=== PATIENT | male | born 1970 | race Caucasian/White ===

== ENCOUNTER → 2022-05-14 09:48 | Outpatient (CLI) | payer BC, SELFPAY ==
--- NOTE | ~2022-05-14 | MR_ITS ---
EXAMINATION: MR knee LT wo con DATE: 05/14/2022 10:29 INDICATION: Acute onset left knee pain TECHNIQUE: Magnetic resonance imaging (MRI) of the left knee was performed without intravenous contra st. Sequences included coronal PD-weighted FSE, coronal PD-weighted FS FSE, sagittal T2-weighted FSE , sagittal PD-weighted FS FSE and axial PD weighted fat saturated FSE. COMPARISON: None. FINDINGS: Medial compartment: Longitudinal horizontal tear plane extending to the intra-articular surface at the posterior horn of the medial meniscus. Partial-thickness chondral fissuring along the lateral side of the anterior to c entral weightbearing medial femoral condyle. Lateral compartment: Lateral meniscus is normal. Deep chondral fissuring without degenerative subchondral changes at the p osterior aspect of the lateral tibial plateau underlying the posterior horn of the lateral meniscus. Patellofemoral compartment: Deep chondral fissure without degenerative subchondral changes at the inferomedial margin of the medi al patellar facet. Relatively wide and deep chondral fissure with mild underlying subarticular edema- like signal change extending transversely across the trochlear groove and lateral two thirds of the m edial trochlea. At the trochlear groove there is an additional delaminating tear extending 8 mm infer iorly from the transverse chondral fissure near the bone chondral interface resulting in a nondisplac ed chondral flap. Ligaments and tendons: Anterior and posterior cruciate ligaments are normal. The medial collateral ligament and fibular tuan ateral ligament complex are normal. The extensor mechanism is normal. The visualized medial and later al hamstring tendons as well as the iliotibial band are normal. Fluid: Small knee joint effusion. No loose osteochondral bodies identified. Mild synovitis within the 5.8 x 2.2 x 1.2 cm Hairston's cyst. Osseous/other: Aside from the mild subarticular edema-like signal change at the medial trochlea and trochlear groove there is normal marrow signal. No fracture or pathologic marrow replacing process. IMPRESSION: 1. Horizontal tear at the posterior horn of the medial meniscus. 2. 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 3. Small left knee joint effusion and moderate-sized Hairston's cyst. Reviewed, dictated and finalized at location A. [facility] IMPRESSION: 1. Horizontal tear at the posterior horn of the medial meniscus. 2. Mild patellofemoral osteoarthritis with regions of high grade and moderate g rade chondromalacia. 3. Small left knee joint effusion and moderate-sized Hairston's cyst.
== END ==
PROVIDERS: PCP Physician Assistant; Visit Provider Physician Assistant
DX: M25.462 Effusion, left knee (principal); S83.242A Other tear of medial meniscus, current injury, left knee, initial encounter; X58.XXXA Exposure to other specified factors, initial encounter; M17.12 Unilateral primary osteoarthritis, left knee
CPT/HCPCS: 73721

== ENCOUNTER 2023-05-19 19:26 | Emergency (ER) | payer BC, SELFPAY ==
[2023-05-19 19:56] VITALS: BP 113/64; PULSE 60; RESP 16; TEMP 36.5; O2SAT 99
--- NOTE | 2023-05-19 20:18 | ED.SKABFB ---
HPI - Skin/Abscess/Foreign Bdy General Chief complaint: Skin/Abscess/Foreign Body Stated complaint: Charline Rasheed Time Seen by Provider: 05/19/23 20:18 Source: patient, RN notes reviewed and old records reviewed Mode of arrival: ambulatory Limitations: no limitations History of Present Illness HPI narrative: 53 year old male who [facility] with complaints of deer hunting over the weekend and coming in contact with what he thinks was poison brionna. Patient reports that he was exposed on Friday and rash noted on Friday around eyes and to eye lids and to testicle area. Patient reports that he has taken Benadryl and also hydrocortisone ointment to rash without resolution, Patient concerned about rash around eyes and on eye lids and would like an injection to help resolve rash and symptoms. MD complaint: rash and other (exposure to poison brionna) Onset (ago): day(s) (2-3 days) Location: face and genitals Severity scale (1-10): 4 Quality: pruritic Associated symptoms: itching Treatments prior to arrival: Benadryl and other (hydrocortisone) Related Data Allergies Allergy/AdvReac Type Severity Reaction Status Date / Time adhesive tape Allergy Mild Swelling Verified 05/19/23 19:46 iodine Allergy Mild Swelling Verified 05/19/23 19:46 Penicillins Allergy Mild Rash Verified 05/19/23 19:46 Review of Systems Review of Systems: CONSTITUTIONAL: Denies malaise, chills, sweats, or fever. EYES: Denies visual changes, redness, or discharge. ENT: Reports rhinorrhea, congestion, sinus pain, otalgia and sore throat. CARDIOVASCULAR: Denies chest pain, palpitations, or edema. RESPIRATORY: Reports cough.? Denies dyspnea. GASTROINTESTINAL: Denies abdominal pain, nausea, vomiting, diarrhea SKIN:Reports rash to face and to genital region with itching MUSCULOSKELETAL: Denies myalgia. NEUROLOGIC: Denies headache. All systems reviewed & are unremarkable except as noted in HPI and below PMFSH Past Medical History Medical History Plantar fibromatosis Surgical History Surgical History H/O: vasectomy Family History Family History Mother Patient's mother is in good health Father Patient's father is in good health Sibling Patient's brother is in good health Social History Social History Smoking status: Never smoker Second hand tobacco smoke exposure: No Smoking end date: 06/23/99 Alcohol intake: never Substance use: unknown Lack of Transportation: No Lack of Food: Never True Current Housing: I Do Not Have Housing Concerned About Future Housing: No Difficulty Paying Gas/Electric Bills: No Difficulty Paying for Meds: No Currently Unemployed: No Education: Master's Degree or Higher Difficulty w/ Childcare or Family Care: No Comments At time of signature, agree with nursing past medical, surgical, social and family history. There is no relevant family history pertinent to the presenting complaint Exam Narrative: GENERAL: Well-appearing, well-nourished, and in no acute distress. HEAD: Normocephalic EYES: PERRLA, conjunctivae clear, irritated rash around eyes and on eye lids itchy from exposure to poison plants while deer hunting on Friday ENT: Nares clear, turbinates edematous and erythematous, clear discharge. Mucous membranes moist. TM pearly christian with dull light reflex bilaterally; no tragal tenderness. Oropharynx erythematous without lesions. Tonsils not enlarged and without exudate, no drooling, no hoarseness, no trismus, uvula midline. NECK: Supple. No lymphadenopathy CHEST: Clear to auscultation, breath sounds equal. No wheezing, rhonchi, rales, or stridor. No respiratory distress, speaks in full sentences.SAO2 99% on room air HEART: Regular rate and rhythm. N
[2023-05-19] MEDS: methylPREDNISolone ACETATE 80 MG/ML VIAL IM (20:26)
== END 2023-05-19 21:00 | disposition home or self-care (01) ==
PROVIDERS: Emergency Provider Registered Nurse; PCP Physician Assistant
DX: L25.5 Unspecified contact dermatitis due to plants, except food (principal)
CPT/HCPCS: 96372; 99213; G0463; J1040

== ENCOUNTER 2023-06-14 17:54 | Emergency (ER) | payer BC, SELFPAY ==
[2023-06-14 18:00] VITALS: BP 118/62; PULSE 81; RESP 16; TEMP 37.2; O2SAT 100
--- NOTE | 2023-06-14 18:29 | ED.URI ---
HPI - URI/Sore Throat General Chief Complaint: Upper Respiratory Infection Stated Complaint: Sinus Infection Time Seen by Provider: 06/14/23 18:20 Source: patient and RN notes reviewed Mode of arrival: ambulatory Limitations: no limitations History of Present Illness HPI Narrative: Patient presents today with a 9-10 day history of nasal congestion, bilateral ear clogging, fatigue. Reports he did have cough earlier on in the illness, but it has since resolved. Denies fever. He has been using Flonase without much relief. Related Data Home Medications Medication Instructions Recorded Confirmed No Home Medications 06/14/23 06/14/23 Allergies Allergy/AdvReac Type Severity Reaction Status Date / Time adhesive tape Allergy Mild Swelling Verified 06/14/23 18:08 iodine Allergy Mild Swelling Verified 06/14/23 18:08 Penicillins Allergy Mild Rash Verified 06/14/23 18:08 Review of Systems Review of Systems: CONSTITUTIONAL: Denies body aches, fever, chills, or sweats.+ fatigue EYES: Denies visual changes, redness, or discharge. ENT: Denies rhinorrhea. + congestion, bilateral ear clogging CARDIOVASCULAR: Denies chest pain, palpitations, or edema. RESPIRATORY: Denies cough or dyspnea. GASTROINTESTINAL: Denies abdominal pain, nausea, vomiting, or diarrhea. GENITOURINARY: Denies dysuria or hematuria. SKIN: Denies rash, itching, or wounds. MUSCULOSKELETAL: Denies back pain, joint pain, or myalgia. NEUROLOGIC: Denies headache, numbness, tingling, or weakness. PSYCH: Denies depression or anxiety. PMFSH Past Medical History Medical History Plantar fibromatosis Surgical History Surgical History H/O: vasectomy Family History Family History Mother Patient's mother is in good health Father Patient's father is in good health Sibling Patient's brother is in good health Social History Social History Smoking status: Never smoker Second hand tobacco smoke exposure: No Smoking end date: 06/23/99 Alcohol intake: never Substance use: unknown Lack of Transportation: No Lack of Food: Never True Current Housing: I Do Not Have Housing Concerned About Future Housing: No Difficulty Paying Gas/Electric Bills: No Difficulty Paying for Meds: No Currently Unemployed: No Education: Master's Degree or Higher Difficulty w/ Childcare or Family Care: No Comments At time of signature, I have reviewed and agree with nursing past medical, surgical, social and family history unless otherwise noted. Please see nursing chart for further information. There is no relevant family history pertinent to the presenting complaint Exam Narrative: GENERAL: Mildly ill-appearing, well-nourished, and in no acute distress. HEAD: Normocephalic, atraumatic. EYES: EOMI. No redness or drainage. Conjunctivae normal. ENT: Mucous membranes pink and moist. Nares congested with purulent discharge. TMs normal bilaterally. Throat normal. Uvula midline. NECK: Normal AROM. Supple. No lymphadenopathy. CHEST: No respiratory distress. Clear to auscultation. HEART: Regular rate and rhythm. No murmur appreciated. EXTREMITIES: Normal range of motion. No edema. SKIN: Warm, dry, no rash. Capillary refill normal. Normal skin turgor. NEURO: No focal deficits. Alert and oriented x3. Gait steady. PSYCH: Normal affect. No signs of depression or anxiety. Course Course Level of Care: Express Care Visit Vital Signs Vital signs: Vital Signs Temperature 98.9 F 06/14/23 18:00 Pulse Rate 81 06/14/23 18:00 Respiratory Rate 16 06/14/23 18:00 Blood Pressure 118/62 06/14/23 18:00 Pulse Oximetry 100 06/14/23 18:00 Temperature 98.9 F 06/14/23 18:00 Pulse Rate 81
== END 2023-06-14 18:36 | disposition home or self-care (01) ==
PROVIDERS: Emergency Provider Nurse Practitioner; PCP Physician Assistant
DX: J01.90 Acute sinusitis, unspecified (principal); Z87.891 Personal history of nicotine dependence; Z98.52 Vasectomy status
CPT/HCPCS: 99213; G0463